=== PATIENT | male | born 1970 | race Caucasian/White ===

== ENCOUNTER 2021-11-12 16:14 | Emergency (ER) | payer BC ==
[~2021-11-12] VITALS: Ht 182.9 cm; Wt 124.7 kg
[2021-11-12 19:09] VITALS: BP 111/77
== END 2021-11-12 19:14 | disposition home or self-care (01) ==
LOC: ER 17:05
DX: U07.1 COVID-19 (principal); I10 Essential (primary) hypertension; E11.9 Type 2 diabetes mellitus without complications; F17.200 Nicotine dependence, unspecified, uncomplicated; Z88.8 Allergy status to other drugs, medicaments and biological substances
CPT/HCPCS: 71045; 83518; 87070; 99283; U0002